=== PATIENT | female | born 1990 | race Caucasian/White ===

== ENCOUNTER → 2017-02-26 | Outpatient (CLI) | payer OTHER ==
[~2017-02-26] MED LIST: ACCUPRIL5 MG PO; ENDOCET 5-3251 EACH PO; HUMALOG (UNIT)1 UNIT SC; HUMALOG100 UNIT/1 SC; IBUPROFEN800 MG PO; KEFLEX500 MG PO; MACROBID100 MG PO; MOTRIN800 MG PO; Motrin PO; PERCOCET 5/31 TABLET PO; PRENATAL TABLE1 EAC3 PO; PROMETHAZINE HC25 M1 PO; PROPRANOLOL HCL10 MG PO; Percocet 5/325,Endoc PO; SYNTHROID100 MCG PO; SYNTHROID75 MCG PO; SYNTHROID88 MCG PO; ZOFRAN4 MG PO
== END | disposition home or self-care (01) ==
LOC: CDC 12:20
DX: R94.31 Abnormal electrocardiogram [ECG] [EKG] (principal)
CPT/HCPCS: 93000

== ENCOUNTER 2017-09-10 05:33 | Outpatient (CLI) | payer OTHER ==
[2017-09-10 05:53] VITALS: BP 121/62
[2017-09-10] MEDS ORDERED: ADULT ASPIRIN R81 MG PO (06:04)
[2017-09-10 07:11] LABS: HEMATOCRIT 33.6 % (36.0-46.0); MCH 28.5 PG (29.0-34.0); MCHC 32.7 G/DL (30.0-36.0); MEAN PLAT.VOLUME 10.7 uM^3 (9.5-12.4); PLATELET COUNT 181 K/uL (156-360); RBC DIS.WIDTH-CV 13.8 % (11.8-14.6); RBC DIS.WIDTH-SD 43.2 % (39-53); RED BLOOD COUNT 3.86 M/uL (3.80-5.20); WHITE BLOOD COUNT 14.6 K/uL (4.1-10.2)
[2017-09-10 07:12] LABS: ADD MIUA? YES; BILIRUBIN NEGATIVE; BLOOD NEGATIVE; COLOR YELLOW ((YELLOW)); GLUCOSE (STRIP) NEGATIVE; KETONES NEGATIVE; LEUKOCYTES MODERATE; NITRITE NEGATIVE; PROTEIN (STRIP) 30; SPECIFIC GRAVITY 1.023 (1.000-1.030); UROBILINOGEN 0.2 MG/DL (0.2-1.0)
[2017-09-10 07:42] LABS: ANION GAP 10 MEQ/L (2-14); CHLORIDE 105 MEQ/L (99-109); POTASSIUM 4.5 MEQ/L (3.7-5.4); SAMPLE HEMOLYSIS CHECK 0; SAMPLE ICTERIC CHECK 0; SAMPLE LIPEMIA CHECK 0; SODIUM 138 MEQ/L (136-147); TOTAL BILIRUBIN 0.8 MG/DL (0.0-1.0)
[2017-09-10 07:45] LABS: BACTERIA RARE /HPF; EPITHELIAL CELLS RARE /HPF; MUCUS 1+ /LPF; RED BLOOD CELLS NONE SEEN /HPF (0-5)
[2017-09-10 07:48] LABS: ALKALINE PHOSPHATASE 214 IU/L (3-129); GFR ESTIMATE (CALCULATED) > 59 mL/min/; GLUCOSE 107 mg/dL (70-99); UREA NITROGEN (BUN) 11 mg/dL (9-23)
[2017-09-10 08:26] LABS: POINT-OF-CARE METER ID UU13113801
[2017-09-10 10:13] VITALS: BP 138/60
[2017-09-10 10:28] LABS: POINT-OF-CARE METER ID UU13113801
[2017-09-10 12:10] LABS: POINT-OF-CARE METER ID UU13113801
[2017-09-10 14:26] LABS: POINT-OF-CARE METER ID UU13113801
== END 2017-09-10 16:59 | disposition home or self-care (01) ==
LOC: LDRP-OP 05:33 → 2WEST 05:34 → LDRP-OP 10-28 09:34
PROVIDERS: Nurse Practitioner; Obstetrics & Gynecology
DX: O99.89 Other specified diseases and conditions complicating pregnancy, childbirth and the puerperium (principal); R11.2 Nausea with vomiting, unspecified; R19.7 Diarrhea, unspecified; O99.283 Endocrine, nutritional and metabolic diseases complicating pregnancy, third trimester; E11.9 Type 2 diabetes mellitus without complications; E03.9 Hypothyroidism, unspecified; Z79.4 Long term (current) use of insulin; Z96.41 Presence of insulin pump (external) (internal); Z14.1 Cystic fibrosis carrier; Z3A.37 37 weeks gestation of pregnancy
CPT/HCPCS: 59025; 76818; 80053; 81003; 82948; 85027; G0378; J1815; J2405; J7120

== ENCOUNTER 2017-09-20 06:22 | Inpatient (IN) | payer OTHER ==
[~2017-09-20] VITALS: Ht 165.1 cm; Wt 71.0 kg
[2017-09-20] VITALS (21 sets, daily range): BP systolic 102–132; BP diastolic 54–96
[~2017-09-20 06:22] MED LIST changes: +ADULT ASPIRIN R81 MG PO
[2017-09-20 09:00] LABS: BASOPHIL (%) 0.3 % (0-1); EOSINOPHIL (%) 0.8 % (0-5); EOSINOPHIL COUNT 0.1 K/uL (0-0.3); HEMATOCRIT 34.8 % (36.0-46.0); HEMOGLOBIN 10.9 G/DL (11.9-15.5); IMMATURE GRANULOCYTE (%) 0.6 % (0.0-0.7); LYMPHOCYTE (%) 14.2 % (15-42); LYMPHOCYTE COUNT 1.6 K/uL (1.0-2.8); MCH 27.2 PG (29.0-34.0); MCHC 31.3 G/DL (30.0-36.0); MCV 86.8 FL (83-99); MONOCYTE (%) 4.2 % (3-12); MONOCYTE COUNT 0.5 K/uL (0-0.8); NEUTROPHIL (%) 79.9 % (45-76); NEUTROPHIL COUNT 9.2 K/uL (1.8-6.4); PLATELET COUNT 213 K/uL (156-360); RBC DIS.WIDTH-SD 44.3 % (39-53); RED BLOOD COUNT 4.01 M/uL (3.80-5.20); WHITE BLOOD COUNT 11.5 K/uL (4.1-10.2)
[2017-09-20] MEDS ORDERED: IBUPROFEN800 MG PO (18:51)
[2017-09-21 08:12] VITALS: BP 108/76
[2017-09-21 22:15] VITALS: BP 119/63
[2017-09-22] VITALS (9 sets, daily range): BP systolic 105–131; BP diastolic 56–76
[2017-09-22 09:54] LABS: CHLORIDE 105 MEQ/L (99-109); CREATININE 0.6 MG/DL (0.6-1.3); GFR ESTIMATE (CALCULATED) > 59 mL/min/; GLUCOSE 192 mg/dL (70-99); POTASSIUM 3.9 MEQ/L (3.7-5.4); SODIUM 139 MEQ/L (136-147); UREA NITROGEN (BUN) 6 mg/dL (9-23)
== END 2017-09-22 17:09 | disposition home or self-care (01) | DRG 774 ==
LOC: LDRP-OP 06:22 → 2WEST 06:23 → LDRP-OP 10-28 17:51
PROVIDERS: Midwife; Nurse Practitioner; Obstetrics & Gynecology
DX: O24.02 Pre-existing type 1 diabetes mellitus, in childbirth (principal); E10.649 Type 1 diabetes mellitus with hypoglycemia without coma; Z37.0 Single live birth; Z3A.39 39 weeks gestation of pregnancy; O36.5930 Maternal care for other known or suspected poor fetal growth, third trimester, not applicable or unspecified; O99.284 Endocrine, nutritional and metabolic diseases complicating childbirth; E03.9 Hypothyroidism, unspecified; Z96.41 Presence of insulin pump (external) (internal); O69.81X0 Labor and delivery complicated by cord around neck, without compression, not applicable or unspecified; Z79.4 Long term (current) use of insulin
CPT/HCPCS: 80048; 82948; 85025; J0595; J7070; J7120; Q0169